=== PATIENT | male | born 1965 ===

== ENCOUNTER 2020-02-19 19:25 | Emergency (ER) | payer SELFPAY ==
[2020-02-19 19:32] VITALS: BP 106/68; BP 96/53; PULSE 100; PULSE 97; RESP 18; TEMP 36.9; O2SAT 97; O2SAT 99; BMI 24.1
--- NOTE | 2020-02-19 19:44 | ECG_ITS ---
Test Reason : CHEST PAIN Blood Pressure : / mmHG Vent. Rate : 098 BPM Atrial Rate : 098 BPM P-R Int : 140 ms QRS Dur : 094 ms QT Int : 354 ms P-R-T Axes : 063 -53 -19 degrees QTc Int : 451 ms Normal sinus rhythm Left anterior fascicular block Nonspecific T wave abnormality Abnormal ECG No previous ECGs available Referred By: Anum Henao Electronically Signed By:SHONNA SAPP MD
--- NOTE | 2020-02-19 19:48 | PC.NURSE ---
pt states his discomfort is midsternal now and its a burning feeling. pt thinks he has reflux
--- NOTE | 2020-02-19 20:03 | PC.NURSE ---
during the assessment of the pt and taking the triage information pt stated that we should have all this information already. pt was explained that we are operating on a new system and not all the history crosses over and we need to re ask informatiion. pt was seen by the provider ekg done and pt got upset about being asked if he has been here before. pt also has been recording on his phone and security was called due to pt would not stop recording. dr forman made aware and is at the bedside.
--- NOTE | 2020-02-19 20:14 | PC.NURSE ---
pt iv has been removed, pt still wants to go and is not willing to delete the video he has on his cell phone. security present and pt has been notified that if he doesnt remove the recording that the police will be called. pt is willing to stay in his room and wait for the police to arrive. pt is also intoxicated and would need a sober ride home. pt is dressed. pt has his black wallet in his pocket and showed proof of this in the presence of security and dry pan charger.
--- NOTE | 2020-02-19 20:24 | PC.NURSE ---
police are present, security has the pt phone due to pt has been making 911 calls while in room 16.
--- NOTE | 2020-02-19 20:28 | PC.NURSE ---
pt wants to leave [facility] and is unwilling to sign
--- NOTE | 2020-02-19 20:34 | PC.NURSE ---
pt escorted off hospital property by [place] police dept. police officier signed the [facility] form due to pt refused and held out his arms to be arrested. witnessed by this rn.
--- NOTE | 2020-02-19 20:45 | PC.NURSE ---
during the time the pt was in room 16 pt was walking around the room with staff, security, and police officier. pt is intoxicated and security stated pt has a strong smell of alcohole. pt gait is steady, pt has no sob, skin pink warm and dry. pt asking for water, none given due to complaint of chest pain on arrival by ems. pt had a 12 lead done on arrival, pt had a iv by ems on arrival. pt has been educated on risks of leaving [facility]. pt is aox3 and has a full understanding. pt was not wanting to answer questions during intake and stated we should have a crystal ball. 18 g right ac removed by dr dunne before pt left with all his belongings (clothing cell phone and black wallet) witnessed by police and security as well as this rn.
--- NOTE | 2020-02-20 01:37 | ED.CHESTPAIN ---
HPI - Chest Pain General Chief Complaint: Chest Pain Stated Complaint: chest pain etoh Time Seen by Provider: 02/19/20 19:45 Source: patient and EMS Mode of arrival: EMS Limitations: no limitations History of Present Illness HPI narrative: patient comes to emergency room complaining of chest pain. Patient states it has been ongoing for the last 2 days. Per EMS, this is the 2nd visit in 2 days or they had to take the patient to the hospital for the same complaint. EMS reported that they asked the patient today what happened after he was taking to the hospital yesterday. Patient replied that he left AMA because they were going too slow, I am not waiting 45 minutes or something , and therefore patient left. EMS reports that on their arrival to the patient's house, patient had unsteady gait, alert and oriented x2, having slurry speech. EMS gave the patient 324 mg p.o. of aspirin and 0.4 mg sublingual nitroglycerin. Patient accepted to drinking alcohol earlier today Review of Systems Review of Systems: Patient reports chest pain, otherwise refused to give any history PMFSH Past Medical History Medical History Diabetes mellitus, type 2 Hypertension Social History Social History Alcohol intake: current Alcohol intake frequency: a few times a week Alcohol type: hard liquor Smoking Status: Current every day smoker Use of substances other than those prescribed or required for medical reasons: No Advance Directives: No Physical Exam Vital Signs: Vital Signs: Last Vital Signs Temp 98.5 F 02/19/20 19:32 Pulse 97 02/19/20 19:32 Resp 18 02/19/20 19:32 BP 96/53 L 02/19/20 19:32 Pulse Ox 97 02/19/20 19:32 Body Mass Index 24.1 patient refused physical exam, patient seems intoxicated. Unable to smell any alcohol in the patient because I was wearing a respirator. Course Course Course Narrative: I was informed by the patient's nurse that when the patient first arrived to the ED, patient was acting intoxicated, patient was irritated by all the questions that are required for triage, patient stated that we should have all of his information, stated that we are unprofessional, that we should know all this. The patient was informed by his nurse that we have a new system and some of the information does not crossover, and additionally, a reassessment of medical history, social history and medications are done in every visit. Patient told the nurse that she should get a crystal ball and stop asking questions. When I went to the patient's room to evaluate him, I started discussing with the patient the chest pain and getting history. I discussed with the patient if this is the 2nd time coming to this hospital for the same chest pain sensation or if something is different. Patient stated that this is not the second time that he comes to this hospital, patient became very upset that I implied that he had been here yesterday, then the patient refused to give any further information. I discussed with the patient that I would go review the EMS report regarding to which hospital he was taken to, the patient agreed. I did review the EMS report, he was taken to [place]. As I entered the patient's room, I appologized to him, discussed with him that he was actually taken to hospital in [place] per EMS, it was not this facility, but it is his second visit in 2 days for chest pain. Patient said that he accpets the apology, shook my hand, and then stated he was leaving. As I discussed further with the patient why he was leaving, I was informed by the patient's nurse that after I left the patient's room, the patient started video recording with his phone. Patient's nurse asked him to not record and kindly asked him to delete the video. Patient refused. The patient's nurse called hospital security. Per our security guards, patient had a strong smell of alcohol and was acting intoxicated. Security asked him to delete whatever he had recorded, since it is not allowed to do any recordings in the hospital to protect the other patients' privacy. Furthermore, the patient was informed by security that he could be fined. Patient stated that he does not care, stated that he has a lot of money and that he has family members who are doctors and enigneers and he could cause all the trouble for us if he wanted by using his influences, and would do so if he was forced to delete the video. The patient was asked to delete the video again. Patient declined, patient told the security officers to call the police department. Our security officers did call PD and at the same time,the patient called 911 from his room as well. Police department arrived to the patient's room. PD asked the patient if he was calling to report himself for his offense, patient stated yes . Patient asked to leave the hospital, patient refused to sign the against medical advise form. Patient stated that he had a sober ride, but since his ride was no present at the time of patient leaving AMA, patient left escorted by PD. Discharge Plan Discharge Clinical Impression: Chest pain, Alcohol intoxication Patient Disposition: Left Against Medical Advice Interventions: ED Discharge Assessment Last Done: 02/19/20 21:14 Discharge Date/Time: 02/19/20 20:34
== END 2020-02-19 20:34 | disposition left against medical advice (07) ==
PROVIDERS: Emergency Provider Emergency Medicine
DX: R07.9 Chest pain, unspecified (principal); F10.129 Alcohol abuse with intoxication, unspecified; Y90.9 Presence of alcohol in blood, level not specified
CPT/HCPCS: 93005; 99283; 99284